=== PATIENT | female | born 1975 | race Caucasian/White ===

== ENCOUNTER → 2022-08-19 08:09 | Outpatient (CLI) | payer OTHER, SELFPAY ==
[2022-08-19 09:07] LABS: Basophils # 0.2 K/mm3 (0-0.2); Basophils % 1.1 % (0.1-2.0); Eosinophils % 0.3 % (0.1-12.0); Hematocrit 37.2 % (37.0-47.0); Hemoglobin 11.8 g/dL (12.2-16.2); Lymphocytes # 2.4 K/mm3 (0.7-4.5); Lymphocytes % 16.9 % (10-50); Mean Corpuscular HGB Conc 31.8 g/dL (31.8-35.4); Mean Corpuscular Hemoglobin 31.6 pg (27.0-31.2); Mean Corpuscular Volume 99.3 fl (81-99); Mean Platelet Volume 7.9 fl (7.4-10.4); Monocytes # 0.7 K/mm3 (0.1-1.0); Monocytes % 5.1 % (1.7-9.3); Neutrophils # 10.6 K/mm3 (1.8-7.8); Neutrophils % 76.5 % (37.0-80.0); Platelet Count 349 K/mm3 (142-424); Red Blood Count 3.74 M/mm3 (4.20-5.40); Red Cell Distribution Width 14.4 % (11.5-17.5); White Blood Count 13.9 K/mm3 (4.8-10.8)
[2022-08-19 09:59] LABS: Chloride 110 mmol/L (98-107); Potassium 3.5 mmoL/L (3.5-5.1); Sodium 141 mmol/L (136-145)
[2022-08-19 10:02] LABS: Alanine Aminotransferase 22 U/L (12-78); Albumin Level 4.1 g/dl (3.5-5.0); Albumin/Globulin Ratio 1.6 (1.1-1.8); Alkaline Phosphatase 59 U/L (38-126); Anion Gap 9.5 mEq/L (5-15); Aspartate Amino Transferase 26 U/L (14-36); Bilirubin,Total 0.2 mg/dl (0.2-1.3); Blood Urea Nitrogen 22 mg/dl (7-17); Calcium 8.8 mg/dl (8.4-10.2); Carbon Dioxide 25 mmol/L (22.0-30.0); Estimated Glomerular Filt Rate 77 ml/min (>60); GFR (African American) 93 ML/MIN (>60); Globulin 2.5 g/dL (1.3-3.2); Glucose 78 mg/dl (74-100); Total Protein,Serum 6.6 g/dl (6.3-8.2)
== END ==
PROVIDERS: Visit Provider Internal Medicine
DX: C50.811 Malignant neoplasm of overlapping sites of right female breast (principal); Z17.0 Estrogen receptor positive status [ER+]
CPT/HCPCS: 36415; 80053; 85025

== ENCOUNTER → 2022-09-02 07:43 | Outpatient (CLI) | payer OTHER, SELFPAY ==
[2022-09-02 07:58] LABS: Basophils # 0.2 K/mm3 (0-0.2); Basophils % 1.3 % (0.1-2.0); Eosinophils # 0.1 K/mm3 (0.0-0.4); Eosinophils % 0.4 % (0.1-12.0); Hematocrit 33.3 % (37.0-47.0); Lymphocytes # 2.3 K/mm3 (0.7-4.5); Mean Corpuscular HGB Conc 33.1 g/dL (31.8-35.4); Mean Corpuscular Hemoglobin 32.5 pg (27.0-31.2); Mean Platelet Volume 7.9 fl (7.4-10.4); Monocytes # 1.1 K/mm3 (0.1-1.0); Monocytes % 6.5 % (1.7-9.3); Neutrophils % 77.8 % (37.0-80.0); Platelet Count 338 K/mm3 (142-424); Red Cell Distribution Width 15.1 % (11.5-17.5); White Blood Count 16.7 K/mm3 (4.8-10.8)
[2022-09-02 08:11] LABS: MANUAL DIFFERENTIAL MANUAL DIFFERENTIAL (MANUAL DIFF)
[2022-09-02 08:27] LABS: Chloride 106 mmol/L (98-107); Potassium 3.8 mmoL/L (3.5-5.1); Sodium 139 mmol/L (136-145)
[2022-09-02 08:30] LABS: Alanine Aminotransferase 29 U/L (12-78); Albumin/Globulin Ratio 1.6 (1.1-1.8); Alkaline Phosphatase 62 U/L (38-126); Anion Gap 9.8 mEq/L (5-15); Aspartate Amino Transferase 31 U/L (14-36); Bilirubin,Total 0.2 mg/dl (0.2-1.3); Blood Urea Nitrogen 20 mg/dl (7-17); Carbon Dioxide 27 mmol/L (22.0-30.0); Estimated Glomerular Filt Rate 77 ml/min (>60); GFR (African American) 93 ML/MIN (>60); Globulin 2.5 g/dL (1.3-3.2); Total Protein,Serum 6.5 g/dl (6.3-8.2)
[2022-09-02 08:31] LABS: Calcium 8.8 mg/dl (8.4-10.2); Glucose 90 mg/dl (74-100)
[2022-09-02 09:42] LABS: Eosinophils % 2 % (0-3); Lymphocytes % 21 % (10-50); Monocytes % 7 % (2-9); Neutrophils % 70 % (42-76); Total Cells Counted 100
[2022-09-02 09:43] LABS: Platelet Estimate Normal; RBC Morphology Normal
== END ==
PROVIDERS: PCP Nurse Practitioner; Visit Provider Internal Medicine
DX: C50.811 Malignant neoplasm of overlapping sites of right female breast (principal); Z17.0 Estrogen receptor positive status [ER+]
CPT/HCPCS: 36415; 80053; 85007; 85025

== ENCOUNTER → 2022-10-14 13:52 | Outpatient (CLI) | payer OTHER, SELFPAY ==
[2022-10-14 14:19] LABS: Basophils % 0.4 % (0.1-2.0); Eosinophils # 0.2 K/mm3 (0.0-0.4); Eosinophils % 3.1 % (0.1-12.0); Hematocrit 33.5 % (37.0-47.0); Lymphocytes # 1.4 K/mm3 (0.7-4.5); Lymphocytes % 19.4 % (10-50); Mean Corpuscular HGB Conc 32.7 g/dL (31.8-35.4); Mean Corpuscular Hemoglobin 33.2 pg (27.0-31.2); Mean Corpuscular Volume 101.3 fl (81-99); Mean Platelet Volume 8.3 fl (7.4-10.4); Monocytes # 0.3 K/mm3 (0.1-1.0); Monocytes % 4.3 % (1.7-9.3); Neutrophils # 5.1 K/mm3 (1.8-7.8); Neutrophils % 72.8 % (37.0-80.0); Platelet Count 285 K/mm3 (142-424); Red Blood Count 3.31 M/mm3 (4.20-5.40); Red Cell Distribution Width 14.6 % (11.5-17.5); White Blood Count 7.1 K/mm3 (4.8-10.8)
[2022-10-14 14:53] LABS: Chloride 105 mmol/L (98-107); Sodium 140 mmol/L (136-145)
[2022-10-14 14:54] LABS: Potassium 3.8 mmoL/L (3.5-5.1)
[2022-10-14 14:56] LABS: Alanine Aminotransferase 52 U/L (12-78); Albumin Level 4.2 g/dl (3.5-5.0); Albumin/Globulin Ratio 1.9 (1.1-1.8); Alkaline Phosphatase 38 U/L (38-126); Anion Gap 12.8 mEq/L (5-15); Aspartate Amino Transferase 43 U/L (14-36); Bilirubin,Total 0.7 mg/dl (0.2-1.3); Blood Urea Nitrogen 19 mg/dl (7-17); Carbon Dioxide 26 mmol/L (22.0-30.0); Estimated Glomerular Filt Rate 67 ml/min (>60); GFR (African American) 81 ML/MIN (>60); Globulin 2.2 g/dL (1.3-3.2); Total Protein,Serum 6.4 g/dl (6.3-8.2)
[2022-10-14 14:57] LABS: Calcium 8.9 mg/dl (8.4-10.2); Glucose 94 mg/dl (74-100)
== END ==
PROVIDERS: PCP Nurse Practitioner; Visit Provider Internal Medicine
DX: C50.811 Malignant neoplasm of overlapping sites of right female breast (principal); Z17.0 Estrogen receptor positive status [ER+]
CPT/HCPCS: 36415; 80053; 85025

== ENCOUNTER → 2022-11-11 13:39 | Outpatient (CLI) | payer OTHER, SELFPAY ==
[2022-11-11 14:29] LABS: Basophils % 0.5 % (0.1-2.0); Eosinophils # 0.1 K/mm3 (0.0-0.4); Eosinophils % 1.1 % (0.1-12.0); Hematocrit 33.5 % (37.0-47.0); Hemoglobin 10.8 g/dL (12.2-16.2); Lymphocytes # 1.5 K/mm3 (0.7-4.5); Lymphocytes % 27.7 % (10-50); Mean Corpuscular HGB Conc 32.3 g/dL (31.8-35.4); Mean Corpuscular Volume 102.3 fl (81-99); Mean Platelet Volume 8.1 fl (7.4-10.4); Monocytes # 0.4 K/mm3 (0.1-1.0); Monocytes % 6.7 % (1.7-9.3); Neutrophils # 3.4 K/mm3 (1.8-7.8); Platelet Count 329 K/mm3 (142-424); Red Blood Count 3.27 M/mm3 (4.20-5.40); Red Cell Distribution Width 13.9 % (11.5-17.5); White Blood Count 5.3 K/mm3 (4.8-10.8)
[2022-11-11 15:08] LABS: Chloride 99 mmol/L (98-107); Sodium 138 mmol/L (136-145)
[2022-11-11 15:11] LABS: Alanine Aminotransferase 50 U/L (12-78); Albumin/Globulin Ratio 1.8 (1.1-1.8); Alkaline Phosphatase 41 U/L (38-126); Anion Gap 14.5 mEq/L (5-15); Aspartate Amino Transferase 35 U/L (14-36); Bilirubin,Total 0.5 mg/dl (0.2-1.3); Blood Urea Nitrogen 17 mg/dl (7-17); Carbon Dioxide 28 mmol/L (22.0-30.0); Estimated Glomerular Filt Rate 67 ml/min (>60); GFR (African American) 81 ML/MIN (>60); Globulin 2.2 g/dL (1.3-3.2); Glucose 90 mg/dl (74-100); Potassium 3.5 mmoL/L (3.5-5.1); Total Protein,Serum 6.2 g/dl (6.3-8.2)
== END ==
PROVIDERS: PCP Nurse Practitioner; Visit Provider Internal Medicine
DX: C50.811 Malignant neoplasm of overlapping sites of right female breast (principal); Z17.0 Estrogen receptor positive status [ER+]
CPT/HCPCS: 36415; 80053; 85025

== ENCOUNTER → 2023-02-26 12:52 | Outpatient (CLI) | payer OTHER, SELFPAY ==
--- NOTE | 2023-02-26 | CA_ITS ---
APPROVED REPORT EXAM: Comprehensive 2D, Doppler, and color-flow Echocardiogram Outpatient Therapist: Yudith Keenan, RCS, RVS Ht: 5 ft 6 in Wt: 185lbs BSA: 1.93 BP: 112/72 mmHg Indications: CHEMO EVALUATION, BREAST CANCER, 6 WEEKS POST-OP RECONSTRUCTION 2D Dimensions Aortic Root 3.03 cm F: 2.7 - 3.3 LA Volume 70.50 mL Left Atrium 2.94 cm F: 2.7 - 3.8 LA Volume Index 36.34 mL/m2 (M/F) 16-34 LVOT 1.95 cm (M/F) 1.5-2.5 M-Mode Dimensions RVDd 1.54 cm (0.9-2.6) LA Diam 3.31 cm (1.9-4.0) LVDd 5.15 cm (3.5-5.7) Ao Diam 3.35 cm (2.0-3.7) LVDs 3.61 cm (3.5-5.7) IVSd 0.93 cm (0.6-1.1) PWd 0.89 cm (0.6-1.1) EF (Teich) 56.70% EPSs 0.65 cm FS 29.90% EDV (Teich) 126.60 mL TAPSE 2.15 (<1.7) ESV (Teich) 54.80 mL LV Diastology E Decel Time 157.00 (160-240 msec) E/A Ratio 1.38 MED E' 6.80 (< 7 cm/sec) MED A' 7.00 cm/s E'/MED E' Ratio 10.12 (>14) LAT E' 6.80 (<10 cm/sec) LAT A' 9.10 cm/s E/LAT E' Ratio 10.12 (>14) Aortic Valve LVOT Max 64.00 (70-110 cm/s) LVOT VTI 11.78 cm AoV Peak Ludwig. 121.00 (50-130 cm/s) AO Peak GR. 5.90 mmHg AO Mean GR. 3.00 (<5 mmHg) AO VTI 22.14 (18-25 cm) DAVID (VTI) 1.59 (2.5-4.5 cm2) Mitral Valve MV A Velocity 50.00 (40-130 cm/s) E/A Ratio 1.38 MV Decel. Time 157.00 (160-240 ms) Pulmonary Valve PV Peak Velocity 75.00 (50-150 cm/s) Tricuspid Valve TR P. Velocity 221.00 cm/s RAP Estimate 10.00 mmHg RVSP 29.60 mmHg Left Ventricle The left ventricle is normal size. The left ventricular systolic function is normal. The left ventricular ejection fraction is within the normal range. There is normal left ventricular wall thickness. There is normal LV segmental wall motion. The left ventricular diastolic function is normal. LVEF is 55-60%. Right Ventricle Right ventricle is mildly dilated. The right ventricular systolic function is normal. Atria The left atrium size is normal. The right atrium size is normal. There is no Doppler evidence of interatrial shunt. Aortic Valve The aortic valve opens well. There is no aortic valvular stenosis. Trace aortic regurgitation. Mitral Valve The mitral valve is normal in structure. No evidence of mitral valve stenosis. Trace mitral regurgitation. Tricuspid Valve The tricuspid valve leaflets are thin and pliable. Trace tricuspid regurgitation. RVSP is normal. Pulmonic Valve The pulmonary valve is normal in structure. Trace pulmonic regurgitation. Great Vessels The aortic root is normal in size. The ascending aorta is normal in size. IVC is normal in size and collapses >50% with inspiration. Pericardium There is no pericardial effusion. An epicardial fat pad is noted. Other Information Study Quality: Adequate Conclusion Normal biventricular systolic function (LVEF 55-60%) Mildly dilated RV. No significant valvular disease. Electronically signed by : Jodi Leon, 02/27/2023 15:46:40
== END ==
PROVIDERS: PCP Nurse Practitioner; Visit Provider Internal Medicine Medical Oncology
DX: C50.911 Malignant neoplasm of unspecified site of right female breast; Z17.0 Estrogen receptor positive status [ER+]; Z01.810 Encounter for preprocedural cardiovascular examination
CPT/HCPCS: 93306

== ENCOUNTER 2023-03-06 08:14 | Outpatient (CLI) | payer OTHER, SELFPAY ==
[2023-03-06 08:17] VITALS: BMI 29.5
--- NOTE | 2023-03-06 08:18 | PC.NURSE ---
0818-collected labs via venipuncture stick in left ac;pt will wait for labs for treatment.
[2023-03-06 08:28] LABS: Basophils % 0.4 % (0.1-2.0); Eosinophils # 0.2 K/mm3 (0.0-0.4); Eosinophils % 2.5 % (0.1-12.0); Hematocrit 32.1 % (37.0-47.0); Hemoglobin 9.8 g/dL (12.2-16.2); Lymphocytes # 1.5 K/mm3 (0.7-4.5); Lymphocytes % 21.3 % (10-50); Mean Corpuscular HGB Conc 30.6 g/dL (31.8-35.4); Mean Corpuscular Volume 78.7 fl (81-99); Mean Platelet Volume 7.9 fl (7.4-10.4); Monocytes # 0.3 K/mm3 (0.1-1.0); Monocytes % 4.5 % (1.7-9.3); Neutrophils # 5.1 K/mm3 (1.8-7.8); Neutrophils % 71.2 % (37.0-80.0); Platelet Count 374 K/mm3 (142-424); Red Blood Count 4.08 M/mm3 (4.20-5.40); Red Cell Distribution Width 16.7 % (11.5-17.5); White Blood Count 7.2 K/mm3 (4.8-10.8)
[2023-03-06 09:00] VITALS: BP 113/71; PULSE 91; RESP 18; TEMP 36.3; O2SAT 100
[2023-03-06 09:08] VITALS: BP 100/67; PULSE 88; RESP 18; O2SAT 98
[2023-03-06 09:13] VITALS: BP 100/68; PULSE 93; RESP 18; O2SAT 99
[2023-03-06 09:18] VITALS: BP 110/69; PULSE 87; RESP 18; O2SAT 100
[2023-03-06 09:23] VITALS: BP 109/71; PULSE 88; RESP 18; O2SAT 99
[2023-03-06 09:40] VITALS: BP 108/71; PULSE 93; RESP 18; O2SAT 100
--- NOTE | 2023-03-06 09:40 | PC.NURSE ---
0940-pt d/c home without s/s of reaction;injection site no only pink. pt instructed to continue to monitor for any s/s of reactions or side effects.
== END 2023-03-06 09:40 | disposition home or self-care (01) ==
LOC: INF 08:14
PROVIDERS: PCP Nurse Practitioner; Visit Provider Internal Medicine Medical Oncology
DX: Z51.11 Encounter for antineoplastic chemotherapy (principal); C50.811 Malignant neoplasm of overlapping sites of right female breast; Z17.0 Estrogen receptor positive status [ER+]
CPT/HCPCS: 36415; 85025; 96401; J9316

== ENCOUNTER 2023-03-26 08:34 | Outpatient (CLI) | payer OTHER, SELFPAY ==
[2023-03-26 08:37] VITALS: BMI 29.5
[2023-03-26 08:45] LABS: Basophils % 0.4 % (0.1-2.0); Eosinophils # 0.1 K/mm3 (0.0-0.4); Eosinophils % 1.7 % (0.1-12.0); Hematocrit 33.7 % (37.0-47.0); Hemoglobin 9.9 g/dL (12.2-16.2); Lymphocytes % 18.5 % (10-50); Mean Corpuscular HGB Conc 29.4 g/dL (31.8-35.4); Mean Corpuscular Hemoglobin 22.1 pg (27.0-31.2); Mean Corpuscular Volume 75.1 fl (81-99); Monocytes # 0.3 K/mm3 (0.1-1.0); Monocytes % 5.7 % (1.7-9.3); Neutrophils % 73.6 % (37.0-80.0); Platelet Count 374 K/mm3 (142-424); Red Blood Count 4.49 M/mm3 (4.20-5.40); Red Cell Distribution Width 16.9 % (11.5-17.5); White Blood Count 5.4 K/mm3 (4.8-10.8)
[2023-03-26 08:51] LABS: Chloride 104 mmol/L (98-107); Potassium 4.1 mmoL/L (3.5-5.1); Sodium 141 mmol/L (136-145)
[2023-03-26 08:53] LABS: Alanine Aminotransferase 27 U/L (12-78); Aspartate Amino Transferase 31 U/L (14-36); Blood Urea Nitrogen 18 mg/dl (7-17); Creatinine Clearance Estimated 100 mL/min (50-200); Estimated Glomerular Filt Rate 67 ml/min (>60); GFR (African American) 81 ML/MIN (>60)
[2023-03-26 08:54] LABS: Albumin Level 4.2 g/dl (3.5-5.0); Albumin/Globulin Ratio 1.4 (1.1-1.8); Alkaline Phosphatase 61 U/L (38-126); Anion Gap 12.1 mEq/L (5-15); Bilirubin,Total 0.5 mg/dl (0.2-1.3); Calcium 9.6 mg/dl (8.4-10.2); Carbon Dioxide 29 mmol/L (22.0-30.0); Globulin 2.9 g/dL (1.3-3.2); Glucose 100 mg/dl (74-100); Total Protein,Serum 7.1 g/dl (6.3-8.2)
[2023-03-26 10:00] VITALS: BP 118/67; PULSE 87; RESP 18; TEMP 36.9; O2SAT 99
[2023-03-26 10:03] VITALS: BP 112/73; PULSE 84
[2023-03-26 10:05] VITALS: BP 112/74; PULSE 87
[2023-03-26 10:13] LABS: Iron 25 ug/dL (37-170)
[2023-03-26 10:20] VITALS: BP 120/74; PULSE 82; RESP 18; O2SAT 99
[2023-03-26 10:22] LABS: Total Iron Binding Capacity 476 ug/dL (265-497)
[2023-03-26 10:50] LABS: Ferritin 6.25 ng/ml (6.24-137)
== END 2023-03-26 10:25 | disposition home or self-care (01) ==
LOC: INF 08:34
PROVIDERS: PCP Nurse Practitioner; Visit Provider Internal Medicine Medical Oncology
DX: C50.911 Malignant neoplasm of unspecified site of right female breast (principal); Z17.0 Estrogen receptor positive status [ER+]; D50.8 Other iron deficiency anemias; R53.83 Other fatigue
CPT/HCPCS: 80053; 82728; 83540; 83550; 85025; 96402; J9316

== ENCOUNTER 2023-04-08 11:11 | Outpatient (CLI) | payer OTHER, SELFPAY ==
[2023-04-08 11:45] VITALS: BP 112/68; PULSE 84; RESP 18; O2SAT 99
== END 2023-04-08 12:30 | disposition home or self-care (01) ==
LOC: INF 11:11
PROVIDERS: PCP Nurse Practitioner; Visit Provider Internal Medicine Medical Oncology
DX: C50.919 Malignant neoplasm of unspecified site of unspecified female breast (principal); D50.9 Iron deficiency anemia, unspecified
CPT/HCPCS: 96365; J1756

== ENCOUNTER 2023-04-14 10:37 | Outpatient (CLI) | payer OTHER, SELFPAY ==
[2023-04-14 11:00] VITALS: BP 117/77; PULSE 84; RESP 18; O2SAT 99
[2023-04-14 11:30] VITALS: BP 108/71; PULSE 76; RESP 18; O2SAT 99
== END 2023-04-14 11:45 | disposition home or self-care (01) ==
LOC: INF 10:37
PROVIDERS: PCP Nurse Practitioner; Visit Provider Internal Medicine Medical Oncology
DX: C50.911 Malignant neoplasm of unspecified site of right female breast (principal); Z17.0 Estrogen receptor positive status [ER+]; D50.8 Other iron deficiency anemias
CPT/HCPCS: 96365; J1756

== ENCOUNTER 2023-04-16 08:29 | Outpatient (CLI) | payer OTHER, SELFPAY ==
[2023-04-16 08:33] VITALS: BMI 29.0
--- NOTE | 2023-04-16 08:40 | PC.NURSE ---
Pt presents today for blood to be drawn prior to oncology md appt. Venipuncture performed per Patricia Ruth RN to pt's lt ac x 1 stick using a butterfly needle, blood obtained for labs and specimen sent to lab for analysis. Once needle was withdrawn, site secured with 2x2 gauze and coban. Pt able to ambulate self to clinic and will return post appt for chemo injection.
[2023-04-16 08:50] LABS: Basophils % 0.3 % (0.1-2.0); Eosinophils # 0.1 K/mm3 (0.0-0.4); Eosinophils % 1.7 % (0.1-12.0); Hemoglobin 11.4 g/dL (12.2-16.2); Lymphocytes # 0.5 K/mm3 (0.7-4.5); Lymphocytes % 8.9 % (10-50); Mean Corpuscular HGB Conc 32.4 g/dL (31.8-35.4); Mean Corpuscular Hemoglobin 24.6 pg (27.0-31.2); Mean Corpuscular Volume 75.7 fl (81-99); Mean Platelet Volume 8.2 fl (7.4-10.4); Monocytes # 0.4 K/mm3 (0.1-1.0); Neutrophils # 4.9 K/mm3 (1.8-7.8); Neutrophils % 82.1 % (37.0-80.0); Platelet Count 249 K/mm3 (142-424); Red Blood Count 4.63 M/mm3 (4.20-5.40); Red Cell Distribution Width 21.6 % (11.5-17.5)
[2023-04-16 08:59] LABS: Alanine Aminotransferase 49 U/L (12-78); Albumin Level 4.7 g/dl (3.5-5.0); Albumin/Globulin Ratio 1.5 (1.1-1.8); Alkaline Phosphatase 59 U/L (38-126); Anion Gap 13.7 mEq/L (5-15); Aspartate Amino Transferase 67 U/L (14-36); Bilirubin,Total 0.9 mg/dl (0.2-1.3); Blood Urea Nitrogen 19 mg/dl (7-17); Carbon Dioxide 28 mmol/L (22.0-30.0); Chloride 101 mmol/L (98-107); Creatinine Clearance Estimated 99 mL/min (50-200); Estimated Glomerular Filt Rate 67 ml/min (>60); GFR (African American) 81 ML/MIN (>60); Globulin 3.2 g/dL (1.3-3.2); Glucose 102 mg/dl (74-100); Potassium 3.7 mmoL/L (3.5-5.1); Sodium 139 mmol/L (136-145); Total Protein,Serum 7.9 g/dl (6.3-8.2)
[2023-04-16 09:28] VITALS: BP 108/64; PULSE 78; RESP 18; TEMP 36.7; O2SAT 99
== END 2023-04-16 09:40 | disposition home or self-care (01) ==
LOC: INF 08:30
PROVIDERS: PCP Nurse Practitioner; Visit Provider Internal Medicine Medical Oncology
DX: C50.911 Malignant neoplasm of unspecified site of right female breast (principal); Z17.0 Estrogen receptor positive status [ER+]
CPT/HCPCS: 36415; 80053; 85025; 96401; J9316

== ENCOUNTER 2023-04-21 10:30 | Outpatient (CLI) | payer OTHER, SELFPAY ==
[2023-04-21 10:55] VITALS: BP 123/87; PULSE 75; RESP 18; O2SAT 100
[2023-04-21 11:28] VITALS: BP 122/81; PULSE 74; RESP 18; O2SAT 100
== END 2023-04-21 11:35 | disposition home or self-care (01) ==
LOC: INF 10:31
PROVIDERS: PCP Nurse Practitioner; Visit Provider Internal Medicine Medical Oncology
DX: C50.911 Malignant neoplasm of unspecified site of right female breast (principal); Z17.0 Estrogen receptor positive status [ER+]; D50.9 Iron deficiency anemia, unspecified
CPT/HCPCS: 96365; J1756

== ENCOUNTER 2023-04-28 08:36 | Outpatient (CLI) | payer OTHER, SELFPAY ==
[2023-04-28 08:56] VITALS: BP 105/75; PULSE 92; RESP 18; O2SAT 99
[2023-04-28 09:30] VITALS: BP 121/71; PULSE 89; RESP 18; O2SAT 99
== END 2023-04-28 09:44 | disposition home or self-care (01) ==
LOC: INF 08:36
PROVIDERS: PCP Nurse Practitioner; Visit Provider Internal Medicine Medical Oncology
DX: C50.811 Malignant neoplasm of overlapping sites of right female breast (principal); Z17.0 Estrogen receptor positive status [ER+]; D50.9 Iron deficiency anemia, unspecified
CPT/HCPCS: 96365; J1756

== ENCOUNTER 2023-05-05 08:44 | Outpatient (CLI) | payer OTHER, SELFPAY ==
[2023-05-05 09:05] VITALS: BP 112/75; PULSE 72; RESP 18; TEMP 36.3; O2SAT 100
[2023-05-05 09:53] VITALS: BP 116/79; PULSE 74; RESP 18; O2SAT 99
== END 2023-05-05 09:54 | disposition home or self-care (01) ==
LOC: INF 08:45
PROVIDERS: PCP Nurse Practitioner; Visit Provider Internal Medicine Medical Oncology
DX: C50.811 Malignant neoplasm of overlapping sites of right female breast (principal); Z17.0 Estrogen receptor positive status [ER+]; D50.9 Iron deficiency anemia, unspecified
CPT/HCPCS: 96365; J1756

== ENCOUNTER 2023-05-06 09:38 | Outpatient (CLI) | payer OTHER, SELFPAY ==
[2023-05-06 09:41] VITALS: BMI 29.7
[2023-05-06 09:56] LABS: Basophils % 0.5 % (0.1-2.0); Eosinophils # 0.1 K/mm3 (0.0-0.4); Eosinophils % 1.7 % (0.1-12.0); Hematocrit 36.9 % (37.0-47.0); Hemoglobin 12.1 g/dL (12.2-16.2); Lymphocytes # 0.7 K/mm3 (0.7-4.5); Lymphocytes % 12.6 % (10-50); Mean Corpuscular HGB Conc 32.7 g/dL (31.8-35.4); Mean Corpuscular Hemoglobin 26.4 pg (27.0-31.2); Mean Corpuscular Volume 80.6 fl (81-99); Monocytes # 0.3 K/mm3 (0.1-1.0); Monocytes % 6.4 % (1.7-9.3); Neutrophils # 4.1 K/mm3 (1.8-7.8); Neutrophils % 78.7 % (37.0-80.0); Platelet Count 200 K/mm3 (142-424); Red Blood Count 4.58 M/mm3 (4.20-5.40); White Blood Count 5.1 K/mm3 (4.8-10.8)
[2023-05-06 10:08] LABS: Alanine Aminotransferase 46 U/L (12-78); Albumin Level 4.6 g/dl (3.5-5.0); Albumin/Globulin Ratio 1.7 (1.1-1.8); Alkaline Phosphatase 55 U/L (38-126); Anion Gap 11.6 mEq/L (5-15); Aspartate Amino Transferase 49 U/L (14-36); Bilirubin,Total 0.5 mg/dl (0.2-1.3); Blood Urea Nitrogen 17 mg/dl (7-17); Calcium 9.7 mg/dl (8.4-10.2); Carbon Dioxide 31 mmol/L (22.0-30.0); Chloride 100 mmol/L (98-107); Creatinine Clearance Estimated 101 mL/min (50-200); Estimated Glomerular Filt Rate 67 ml/min (>60); GFR (African American) 81 ML/MIN (>60); Globulin 2.7 g/dL (1.3-3.2); Glucose 97 mg/dl (74-100); Potassium 3.6 mmoL/L (3.5-5.1); Sodium 139 mmol/L (136-145); Total Protein,Serum 7.3 g/dl (6.3-8.2)
[2023-05-06 10:17] LABS: Red Cell Distribution Width 26.1 % (11.5-17.5)
--- NOTE | 2023-05-06 10:28 | PC.NURSE ---
05/06/23 0946-pt presents today prior to md appt with oncologist to have blood drawn for labs. Venipuncture performed by Li Mancilla RN using butterfly needle to pt's lt ac x 1 stick. Site secured with 2x2 gauze and coban once needle was withdrawn. Pt ambulated self to Specialty clinic to see .
[2023-05-06 11:40] VITALS: BP 122/71; PULSE 74; RESP 18; TEMP 36.8; O2SAT 100
[2023-05-06 11:55] VITALS: BP 118/68; PULSE 69; O2SAT 100
== END 2023-05-06 11:55 | disposition home or self-care (01) ==
LOC: INF 09:39
PROVIDERS: PCP Nurse Practitioner; Visit Provider Internal Medicine Medical Oncology
DX: Z51.11 Encounter for antineoplastic chemotherapy (principal); C50.411 Malignant neoplasm of upper-outer quadrant of right female breast; Z17.0 Estrogen receptor positive status [ER+]; Z79.899 Other long term (current) drug therapy
CPT/HCPCS: 36415; 80053; 85025; 96402; J9316

== ENCOUNTER 2023-05-11 09:00 | Outpatient (RCR) | payer OTHER, SELFPAY ==
--- NOTE | 2023-04-16 13:56 | [facility]H.PTOPWND ---
Rehab Outpt Wound Evaluation Rehab OP Wound Evaluation Start: 04/16/23 08:05 Freq: Status: Active Protocol: Document 04/16/23 13:39 PHOFANNY (Rec: 04/16/23 13:56 PHORSUSAN [id number]) E-signed By Chele Hung, PT Subjective/History History History This is the initial PT eval for Darline Farnsworth, 47 yowf who presents with UE discomfort and swelling due to breast cancer (T3N0M0, ER/OR+, HER2+) She was diagnosed ~ 1 yr ago and underwent B mastectomy ~ 7 mos ago with sentinel lymph node biopsy performed and 1 lymph node removed. She has underwent chemo and is currently undergoing XRT. She reports minimal edema in the UEs this date, but some discomfort with certain movements. She has PMH of WAG[place]. Subjective Subjective Pt currently has no c/o pain, at worst pain is 3/10. No sensations of numbness or tingling in B UE. No palpable edema in B UE this date. R axilla with increased ridging and mild palpable fibrotic edema. New diagnosis of cancer in past 12 Yes months? Lymphedema Eval Classification of Lymphedema Secondary Lymphedema Yes: Breast cancer Stemmer's sign Stemmer's Sign no Stage of Lymphedema Lymphedema stages Stage 0 (subjective c/o heaviness and aching) Skin Changes Other Changes Yes Pain Scale Pain Scale (0-10) 3 Radiation Therapy Has received radiation therapy yes Chemo Therapy Has received chemo therapy yes Affected Extremities Areas Affected by Lymphedema/Edema Right Upper Extremity,Left Upper Extremity,Right Breast, Left Breast,Right Axilla,Left Axilla Manual Lymphatic Drainage Treatment Area MLD Treatment Area Right Upper Extremity,Left Upper Extremity,Right Breast, Left Breast,Right Axilla,Left Axilla Wound Problems/Impairments Impairments Problems/Impairmments Impaired Range of Motion, Impaired Strength,Impaired Endurance,Impaired Lifting, Impaired Dressing,Impaired Household Care,Impaired Recreational Activities, Lymphedema Present,Subjective C/O Pain,Impaired Self Care/ Self Management Prognosis Rehab Potential Good Clinical Impression Consistent with Diagnosis Yes Short Term Goals Number of Weeks 2 Decrease Lymphedema Yes: No fibrotic edema Decrease Subjective C/O Pain Yes: 2/10 at worst Patient to Understand Lymphedema Yes Treatment and Exercises Decrease Girth Measurments by (cm) Yes: B UE by 5 cm total ea Care Home Goals Number of Weeks 4 Improve Ability For Household Care Yes Decrease Edema Yes: No palpable edema Decrease Subjective C/O Pain Yes: 0/10 at worst Patient to be Ind w/ Advanced HEP Yes Patient to be Ind w/ Donning/Hull Yes Compression Garments Patient to Adhere Lymphedema Precautions Yes Decrease Girth Measurments by (cm) Yes: B UE total by 10 cm ea Outpatient Therapy Plan of Care Treatment Plan May Include Therapeutic Exercise Including Home Yes Exercise Program Manual Therapy Techniques Yes Neuromuscular Re-education Yes Therapeutic Activities to Return to Yes Previous Functional/Work Level ADL/Self Care Education Yes Orthotics/Bracing/Splinting Yes Manual Lymphatic Drainage Yes Eval/Re-Eval Yes Frequency Times per week 1-2 Duration Number of Weeks 4 Addendums This patient is a candidate for social No or vocational rehab? Patient/Guardian verbally acknowledges Yes understanding of treatment program and consents to further treatment? Patient/Guardian verbally acknowledges Yes understanding of diagnosis, prognosis and goals for treatment? Eval Complexity PT Charges 01720 - High Complexity PHYSICIAN CERTIFICATION: I certify the specified therapy services for Darline Farnsworth are required, authorized, and reviewed every 30 days.
== END 2023-05-11 10:20 | disposition home or self-care (01) ==
LOC: PT 09:00
PROVIDERS: Visit Provider Internal Medicine Medical Oncology
DX: I89.0 Lymphedema, not elsewhere classified (principal); C50.811 Malignant neoplasm of overlapping sites of right female breast; Z17.0 Estrogen receptor positive status [ER+]
CPT/HCPCS: 97140; 97163; 97760

== ENCOUNTER → 2023-05-15 11:05 | Outpatient (CLI) | payer OTHER, SELFPAY ==
--- NOTE | 2023-05-15 | CA_ITS ---
APPROVED REPORT EXAM: Limited 2D, Doppler, and color-flow Echocardiogram Hand Plug Shaper: Yadira Porter, RT(R) Ht: 5 ft 6 in Wt: 184lbs BSA: 1.93 BP: 119/82 mmHg Indications: EF for chemo use, breast cancer, bilateral mastectomies with bilateral breast reconstsruction, pt gets echo every 3 months during chemo to assess EF. 2D Dimensions LVEF (Visual) 55.00 % LVEF (Burk's) 35.80 % F: 54 - 74 LV Volume 85.00 mL F: 46 - 106 LV Volume Index 44.04 mL/m2 F: 29 - 61 M-Mode Dimensions RVDd 2.43 cm (0.9-2.6) LVDd 4.83 cm (3.5-5.7) LVDs 3.65 cm (3.5-5.7) IVSd 0.75 cm (0.6-1.1) PWd 0.57 cm (0.6-1.1) FS 24.40% EDV (Teich) 109.10 mL ESV (Teich) 56.30 mL LV Diastology E/A Ratio 1.29 Mitral Valve MV A Velocity 57.00 (40-130 cm/s) Tricuspid Valve RVSP 29.90 mmHg Other Information Study Quality: Fair Conclusion This is a limited TTE to evaluate for LVEF. Limited windows were obtained. The left ventricle appears normal in size and systolic function. No regional wall motion abnormalities are noted. LVEF is calculated at 55%. Mild TR is present. Compared to prior study from 02/26/2023, there is no significant change in the LVEF. Electronically signed by : Jodi Leon MD 05/15/2023 20:49:59
== END ==
PROVIDERS: PCP Nurse Practitioner; Visit Provider Internal Medicine Medical Oncology
DX: C50.811 Malignant neoplasm of overlapping sites of right female breast (principal); Z17.0 Estrogen receptor positive status [ER+]
CPT/HCPCS: 93308

== ENCOUNTER 2023-05-27 09:24 | Outpatient (CLI) | payer OTHER, SELFPAY ==
[2023-05-27 09:27] VITALS: BMI 29.7
--- NOTE | 2023-05-27 09:37 | PC.NURSE ---
0930- cbc and cmp drawn per MD Pawan order. pt to oncology appt at this time and will return for Phesgo injection.
[2023-05-27 09:47] LABS: Alanine Aminotransferase 57 U/L (12-78); Albumin Level 4.6 g/dl (3.5-5.0); Albumin/Globulin Ratio 1.5 (1.1-1.8); Alkaline Phosphatase 96 U/L (38-126); Anion Gap 11.5 mEq/L (5-15); Aspartate Amino Transferase 58 U/L (14-36); Blood Urea Nitrogen 17 mg/dl (7-17); Calcium 9.5 mg/dl (8.4-10.2); Carbon Dioxide 27 mmol/L (22.0-30.0); Chloride 101 mmol/L (98-107); Creatinine Clearance Estimated 91 mL/min (50-200); Estimated Glomerular Filt Rate 59 ml/min (>60); GFR (African American) 72 ML/MIN (>60); Glucose 87 mg/dl (74-100); Potassium 3.5 mmoL/L (3.5-5.1); Sodium 136 mmol/L (136-145); Total Protein,Serum 7.6 g/dl (6.3-8.2)
[2023-05-27 09:51] LABS: Basophils % 0.5 % (0.1-2.0); Eosinophils # 0.1 K/mm3 (0.0-0.4); Eosinophils % 1.8 % (0.1-12.0); Hematocrit 41.8 % (37.0-47.0); Hemoglobin 13.3 g/dL (12.2-16.2); Lymphocytes # 0.7 K/mm3 (0.7-4.5); Mean Corpuscular HGB Conc 31.8 g/dL (31.8-35.4); Mean Corpuscular Hemoglobin 27.1 pg (27.0-31.2); Mean Corpuscular Volume 85.2 fl (81-99); Mean Platelet Volume 7.7 fl (7.4-10.4); Monocytes # 0.4 K/mm3 (0.1-1.0); Monocytes % 6.6 % (1.7-9.3); Neutrophils # 4.3 K/mm3 (1.8-7.8); Platelet Count 235 K/mm3 (142-424); White Blood Count 5.5 K/mm3 (4.8-10.8)
[2023-05-27 09:54] LABS: Red Cell Distribution Width 25.8 % (11.5-17.5)
[2023-05-27 11:10] VITALS: BP 108/72; PULSE 76; RESP 18; TEMP 36.7; O2SAT 99
[2023-05-27 11:15] VITALS: BP 110/67; PULSE 74
== END 2023-05-27 11:25 | disposition home or self-care (01) ==
LOC: INF 09:24
PROVIDERS: PCP Nurse Practitioner; Visit Provider Internal Medicine Medical Oncology
DX: C50.911 Malignant neoplasm of unspecified site of right female breast (principal)
CPT/HCPCS: 80053; 85025; 96402; J9316

== ENCOUNTER 2023-06-17 09:16 | Outpatient (CLI) | payer OTHER, SELFPAY ==
[2023-06-17 09:20] VITALS: BMI 29.2
--- NOTE | 2023-06-17 09:30 | PC.NURSE ---
0925 - BLOOD DRAWN FROM LEFT AC USING BUTTERFLY NEEDLE TO CHECK LABS PRIOR TO DR ILEANA FREGOSO
[2023-06-17 09:33] LABS: Basophils % 0.7 % (0.1-2.0); Eosinophils # 0.1 K/mm3 (0.0-0.4); Eosinophils % 1.7 % (0.1-12.0); Hematocrit 40.4 % (37.0-47.0); Lymphocytes # 0.6 K/mm3 (0.7-4.5); Lymphocytes % 10.8 % (10-50); Mean Corpuscular HGB Conc 32.3 g/dL (31.8-35.4); Mean Corpuscular Volume 89.7 fl (81-99); Mean Platelet Volume 7.5 fl (7.4-10.4); Monocytes # 0.3 K/mm3 (0.1-1.0); Monocytes % 5.2 % (1.7-9.3); Neutrophils # 4.4 K/mm3 (1.8-7.8); Neutrophils % 81.7 % (37.0-80.0); Platelet Count 238 K/mm3 (142-424); Red Cell Distribution Width 22.4 % (11.5-17.5); White Blood Count 5.4 K/mm3 (4.8-10.8)
[2023-06-17 09:41] LABS: Chloride 103 mmol/L (98-107); Potassium 3.5 mmoL/L (3.5-5.1); Sodium 139 mmol/L (136-145)
[2023-06-17 09:43] LABS: Blood Urea Nitrogen 22 mg/dl (7-17); Creatinine Clearance Estimated 89 mL/min (50-200); Estimated Glomerular Filt Rate 59 ml/min (>60); GFR (African American) 72 ML/MIN (>60)
[2023-06-17 09:44] LABS: Alanine Aminotransferase 35 U/L (12-78); Albumin Level 4.6 g/dl (3.5-5.0); Albumin/Globulin Ratio 1.7 (1.1-1.8); Alkaline Phosphatase 68 U/L (38-126); Anion Gap 7.5 mEq/L (5-15); Aspartate Amino Transferase 40 U/L (14-36); Bilirubin,Total 0.8 mg/dl (0.2-1.3); Calcium 9.5 mg/dl (8.4-10.2); Carbon Dioxide 32 mmol/L (22.0-30.0); Globulin 2.7 g/dL (1.3-3.2); Glucose 78 mg/dl (74-100); Total Protein,Serum 7.3 g/dl (6.3-8.2)
[2023-06-17 10:20] VITALS: BP 110/76; PULSE 96; RESP 16; TEMP 36.5; O2SAT 100
== END 2023-06-17 10:40 | disposition home or self-care (01) ==
LOC: INF 09:16
PROVIDERS: PCP Nurse Practitioner; Visit Provider Internal Medicine Medical Oncology
DX: C50.411 Malignant neoplasm of upper-outer quadrant of right female breast (principal)
CPT/HCPCS: 80053; 85025; 96402; J9316

== ENCOUNTER 2023-07-08 08:37 | Outpatient (CLI) | payer OTHER, SELFPAY ==
--- NOTE | 2023-07-08 08:47 | PC.NURSE ---
0847-collected labs via venipuncture stick with butterfly needle in left ac;pt to get treatment.
[2023-07-08 09:05] VITALS: BMI 21.4
[2023-07-08 09:16] LABS: Alanine Aminotransferase 27 U/L (12-78); Albumin Level 4.4 g/dl (3.5-5.0); Albumin/Globulin Ratio 1.7 (1.1-1.8); Alkaline Phosphatase 76 U/L (38-126); Anion Gap 10.4 mEq/L (5-15); Aspartate Amino Transferase 35 U/L (14-36); Bilirubin,Total 0.6 mg/dl (0.2-1.3); Blood Urea Nitrogen 24 mg/dl (7-17); Calcium 9.3 mg/dl (8.4-10.2); Carbon Dioxide 25 mmol/L (22.0-30.0); Chloride 104 mmol/L (98-107); Creatinine Clearance Estimated 68 mL/min (50-200); Estimated Glomerular Filt Rate 67 ml/min (>60); GFR (African American) 81 ML/MIN (>60); Globulin 2.6 g/dL (1.3-3.2); Glucose 104 mg/dl (74-100); Potassium 3.4 mmoL/L (3.5-5.1); Sodium 136 mmol/L (136-145)
[2023-07-08 09:18] LABS: Basophils % 0.3 % (0.1-2.0); Eosinophils # 0.1 K/mm3 (0.0-0.4); Eosinophils % 1.4 % (0.1-12.0); Hematocrit 40.3 % (37.0-47.0); Hemoglobin 13.6 g/dL (12.2-16.2); Lymphocytes # 0.7 K/mm3 (0.7-4.5); Lymphocytes % 8.5 % (10-50); Mean Corpuscular HGB Conc 33.7 g/dL (31.8-35.4); Mean Corpuscular Hemoglobin 31.4 pg (27.0-31.2); Mean Corpuscular Volume 93.1 fl (81-99); Mean Platelet Volume 7.9 fl (7.4-10.4); Monocytes # 0.4 K/mm3 (0.1-1.0); Monocytes % 5.3 % (1.7-9.3); Neutrophils # 6.9 K/mm3 (1.8-7.8); Neutrophils % 84.6 % (37.0-80.0); Platelet Count 267 K/mm3 (142-424); Red Blood Count 4.33 M/mm3 (4.20-5.40); Red Cell Distribution Width 18.6 % (11.5-17.5); White Blood Count 8.1 K/mm3 (4.8-10.8)
[2023-07-08] MEDS: HYALURONIDASE SQ (09:50)
[2023-07-08] MEDS: TRASTUZUMAB SQ (09:50)
[2023-07-08] MEDS: PERTUZUMAB SQ (09:50)
[2023-07-08 09:59] VITALS: BP 108/70; PULSE 96; RESP 18; TEMP 36.6; O2SAT 100
== END 2023-07-08 09:59 | disposition home or self-care (01) ==
LOC: INF 08:39
PROVIDERS: PCP Nurse Practitioner; Visit Provider Internal Medicine Medical Oncology
DX: C50.411 Malignant neoplasm of upper-outer quadrant of right female breast (principal); Z17.0 Estrogen receptor positive status [ER+]
CPT/HCPCS: 36415; 80053; 85025; 96401; 96402; J9316

== ENCOUNTER 2023-07-31 08:35 | Outpatient (CLI) | payer OTHER, SELFPAY ==
[2023-07-31 08:45] VITALS: BMI 29.3
[2023-07-31 08:54] LABS: Basophils % 0.4 % (0.1-2.0); Eosinophils # 0.2 K/mm3 (0.0-0.4); Hematocrit 32.5 % (37.0-47.0); Hemoglobin 12.3 g/dL (12.2-16.2); Lymphocytes # 0.8 K/mm3 (0.7-4.5); Lymphocytes % 13.1 % (10-50); Mean Corpuscular HGB Conc 37.8 g/dL (31.8-35.4); Mean Corpuscular Hemoglobin 35.9 pg (27.0-31.2); Mean Corpuscular Volume 95.1 fl (81-99); Monocytes # 0.4 K/mm3 (0.1-1.0); Neutrophils # 4.8 K/mm3 (1.8-7.8); Neutrophils % 77.4 % (37.0-80.0); Platelet Count 239 K/mm3 (142-424); Red Blood Count 3.42 M/mm3 (4.20-5.40); Red Cell Distribution Width 14.9 % (11.5-17.5); White Blood Count 6.2 K/mm3 (4.8-10.8)
--- NOTE | 2023-07-31 09:01 | PC.NURSE ---
0844- cbc and cmp drawn per MD order via butterfly needle in left ac. pt tolerated well and will return after oncologt appt for phesgo injection.
[2023-07-31 09:17] LABS: Alanine Aminotransferase 32 U/L (12-78); Albumin Level 3.8 g/dl (3.5-5.0); Albumin/Globulin Ratio 1.5 (1.1-1.8); Alkaline Phosphatase 73 U/L (38-126); Anion Gap 9.6 mEq/L (5-15); Aspartate Amino Transferase 40 U/L (14-36); Bilirubin,Total 0.9 mg/dl (0.2-1.3); Blood Urea Nitrogen 13 mg/dl (7-17); Calcium 9.3 mg/dl (8.4-10.2); Carbon Dioxide 30 mmol/L (22.0-30.0); Chloride 104 mmol/L (98-107); Creatinine Clearance Estimated 128 mL/min (50-200); Estimated Glomerular Filt Rate 89 ml/min (>60); GFR (African American) 108 ML/MIN (>60); Globulin 2.5 g/dL (1.3-3.2); Glucose 102 mg/dl (74-100); Potassium 3.6 mmoL/L (3.5-5.1); Sodium 140 mmol/L (136-145); Total Protein,Serum 6.3 g/dl (6.3-8.2)
[2023-07-31] MEDS: PERTUZUMAB SQ (09:50)
[2023-07-31] MEDS: HYALURONIDASE SQ (09:50)
[2023-07-31] MEDS: TRASTUZUMAB SQ (09:50)
[2023-07-31 09:52] VITALS: BP 118/59; PULSE 72; RESP 18; TEMP 36.8; O2SAT 99
[2023-07-31 10:00] VITALS: BP 121/72; PULSE 81; RESP 18; TEMP 36.7; O2SAT 99
== END 2023-07-31 10:00 | disposition home or self-care (01) ==
PROVIDERS: PCP Nurse Practitioner; Visit Provider Internal Medicine Medical Oncology
DX: C50.811 Malignant neoplasm of overlapping sites of right female breast (principal); Z17.0 Estrogen receptor positive status [ER+]
CPT/HCPCS: 80053; 85025; 96401; 96402; J9316

== ENCOUNTER 2023-08-24 08:47 | Outpatient (CLI) | payer OTHER, SELFPAY ==
[2023-08-24 09:12] VITALS: BP 118/50; PULSE 96; RESP 18; TEMP 36.6; O2SAT 97
[2023-08-24] MEDS: TRASTUZUMAB SQ (09:12)
[2023-08-24] MEDS: PERTUZUMAB SQ (09:12)
[2023-08-24] MEDS: HYALURONIDASE SQ (09:12)
== END 2023-08-24 09:30 | disposition home or self-care (01) ==
LOC: INF 08:48
PROVIDERS: PCP Nurse Practitioner; Visit Provider Internal Medicine Medical Oncology
DX: C50.811 Malignant neoplasm of overlapping sites of right female breast (principal); Z17.0 Estrogen receptor positive status [ER+]
CPT/HCPCS: 96401; 96402; J9316

== ENCOUNTER 2023-09-04 15:05 | Outpatient (CLI) | payer OTHER, SELFPAY ==
--- NOTE | 2023-09-04 | CA_ITS ---
APPROVED REPORT EXAM: Comprehensive 2D, Doppler, and color-flow Echocardiogram German Professor: Olga Loomis CRT Ht: 5 ft 6 in Wt: 184lbs BSA: 1.93 BP: 117/79 mmHg Indications: EF for chemo, pt gets chemo injection every 3 week, ef check every 3 months, Breast CA, bilateral mastectomies and reconstruction 2D Dimensions Left Atrium 3.26 cm EF AP4 60.60 % LVOT 1.90 cm (M/F) 1.5-2.5 GL Strain -19.3 % M-Mode Dimensions RVDd 2.02 cm (0.9-2.6) LVDd 5.03 cm (3.5-5.7) Ao Diam 3.55 cm (2.0-3.7) LVDs 3.50 cm (3.5-5.7) IVSd 0.90 cm (0.6-1.1) PWd 0.72 cm (0.6-1.1) EF (Teich) 57.50% FS 30.40% EDV (Teich) 119.90 mL ESV (Teich) 50.90 mL Other Information Study Quality: Adequate Conclusion This is a limited TTE to evaluate for LVEF. Limited windows were obtained. The left ventricle is normal in size. There is normal LV systolic function. There is normal LV wall thickness. No regional wall motion abnormalities are noted. LVEF is 55-60%. The right ventricle is mildly dilated. There is normal RV systolic function. Compared to prior study from 05/15/2023, the biventricular size and function are unchanged. Electronically signed by : Jodi Leon MD 09/05/2023 16:52:54
== END 2023-09-04 23:59 ==
LOC: RT 15:05
PROVIDERS: PCP Nurse Practitioner; Visit Provider Internal Medicine Medical Oncology
DX: C50.811 Malignant neoplasm of overlapping sites of right female breast (principal); Z17.0 Estrogen receptor positive status [ER+]
CPT/HCPCS: 93308

== ENCOUNTER 2023-09-22 08:47 | Outpatient (CLI) | payer OTHER, SELFPAY ==
[2023-09-22 08:53] VITALS: BMI 29.7
[2023-09-22 09:13] LABS: Albumin Level 4.2 g/dl (3.5-5.0); Albumin/Globulin Ratio 1.6 (1.1-1.8); Alkaline Phosphatase 70 U/L (38-126); Anion Gap 9.1 mEq/L (5-15); Bilirubin,Total 0.8 mg/dl (0.2-1.3); Blood Urea Nitrogen 17 mg/dl (7-17); Calcium 9.8 mg/dl (8.4-10.2); Carbon Dioxide 29 mmol/L (22.0-30.0); Chloride 105 mmol/L (98-107); Creatinine Clearance Estimated 82 mL/min (50-200); Estimated Glomerular Filt Rate 53 ml/min (>60); GFR (African American) 64 ML/MIN (>60); Globulin 2.6 g/dL (1.3-3.2); Glucose 80 mg/dl (74-100); Potassium 3.1 mmoL/L (3.5-5.1); Sodium 140 mmol/L (136-145); Total Protein,Serum 6.8 g/dl (6.3-8.2)
[2023-09-22 09:14] LABS: Aspartate Amino Transferase 34 U/L (14-36); Basophils % 0.7 % (0.1-2.0); Eosinophils # 0.3 K/mm3 (0.0-0.4); Eosinophils % 4.1 % (0.1-12.0); Hematocrit 38.1 % (37.0-47.0); Hemoglobin 12.5 g/dL (12.2-16.2); Lymphocytes # 0.9 K/mm3 (0.7-4.5); Lymphocytes % 14.4 % (10-50); Mean Corpuscular HGB Conc 32.9 g/dL (31.8-35.4); Mean Corpuscular Hemoglobin 33.6 pg (27.0-31.2); Mean Corpuscular Volume 102.4 fl (81-99); Mean Platelet Volume 8.3 fl (7.4-10.4); Monocytes # 0.4 K/mm3 (0.1-1.0); Monocytes % 5.9 % (1.7-9.3); Neutrophils # 4.6 K/mm3 (1.8-7.8); Neutrophils % 74.9 % (37.0-80.0); Platelet Count 266 K/mm3 (142-424); Red Blood Count 3.72 M/mm3 (4.20-5.40); Red Cell Distribution Width 13.4 % (11.5-17.5); White Blood Count 6.2 K/mm3 (4.8-10.8)
[2023-09-22 09:44] LABS: Alanine Aminotransferase 29 U/L (12-78)
[2023-09-22] MEDS: HYALURONIDASE SQ (10:20)
[2023-09-22] MEDS: TRASTUZUMAB SQ (10:20)
[2023-09-22] MEDS: PERTUZUMAB SQ (10:20)
[2023-09-22 10:28] VITALS: BP 112/75; PULSE 76; RESP 18; O2SAT 100
[2023-09-22 10:35] VITALS: BP 115/79; PULSE 80; RESP 18; O2SAT 99
== END 2023-09-22 12:35 | disposition home or self-care (01) ==
LOC: INF 08:47
PROVIDERS: PCP Nurse Practitioner; Visit Provider Internal Medicine Medical Oncology
DX: C50.411 Malignant neoplasm of upper-outer quadrant of right female breast (principal); Z79.899 Other long term (current) drug therapy
CPT/HCPCS: 36415; 80053; 85025; 96401; 96402; J9316

== ENCOUNTER 2023-10-19 08:31 | Outpatient (CLI) | payer OTHER, SELFPAY ==
[2023-10-19] MEDS: PERTUZUMAB SQ (08:52)
[2023-10-19] MEDS: TRASTUZUMAB SQ (08:52)
[2023-10-19] MEDS: HYALURONIDASE SQ (08:52)
[2023-10-19 08:55] VITALS: BP 108/59; PULSE 71; RESP 18; TEMP 36.6; O2SAT 100
[2023-10-19 09:10] VITALS: BP 110/72; PULSE 76; O2SAT 100
== END 2023-10-19 09:10 | disposition home or self-care (01) ==
LOC: INF 08:31
PROVIDERS: PCP Nurse Practitioner; Visit Provider Internal Medicine Medical Oncology
DX: C50.811 Malignant neoplasm of overlapping sites of right female breast (principal); Z17.0 Estrogen receptor positive status [ER+]
CPT/HCPCS: 96401; 96402; J9316

== ENCOUNTER 2023-11-10 09:36 | Outpatient (CLI) | payer OTHER, SELFPAY ==
[2023-11-10 09:41] VITALS: BMI 28.2
--- NOTE | 2023-11-10 09:43 | PC.NURSE ---
0943-collected labs via venipuncture stick in left ac with butterfly needle;pt to oncology and to return for treatment.
[2023-11-10 09:52] LABS: Basophils % 0.6 % (0.1-2.0); Eosinophils # 0.1 K/mm3 (0.0-0.4); Eosinophils % 1.8 % (0.1-12.0); Hematocrit 38.1 % (37.0-47.0); Hemoglobin 12.2 g/dL (12.2-16.2); Lymphocytes # 0.8 K/mm3 (0.7-4.5); Lymphocytes % 12.3 % (10-50); Mean Corpuscular Volume 103.2 fl (81-99); Mean Platelet Volume 7.7 fl (7.4-10.4); Monocytes # 0.3 K/mm3 (0.1-1.0); Monocytes % 4.3 % (1.7-9.3); Neutrophils # 4.9 K/mm3 (1.8-7.8); Neutrophils % 81.1 % (37.0-80.0); Platelet Count 257 K/mm3 (142-424); Red Blood Count 3.69 M/mm3 (4.20-5.40); Red Cell Distribution Width 13.5 % (11.5-17.5); White Blood Count 6.1 K/mm3 (4.8-10.8)
[2023-11-10 09:59] LABS: Chloride 105 mmol/L (98-107); Potassium 3.5 mmoL/L (3.5-5.1); Sodium 139 mmol/L (136-145)
[2023-11-10 10:02] LABS: Alanine Aminotransferase 29 U/L (12-78); Albumin/Globulin Ratio 1.6 (1.1-1.8); Alkaline Phosphatase 58 U/L (38-126); Anion Gap 5.5 mEq/L (5-15); Aspartate Amino Transferase 35 U/L (14-36); Bilirubin,Total 0.6 mg/dl (0.2-1.3); Blood Urea Nitrogen 24 mg/dl (7-17); Calcium 9.5 mg/dl (8.4-10.2); Carbon Dioxide 32 mmol/L (22.0-30.0); Creatinine Clearance Estimated 107 mL/min (50-200); Estimated Glomerular Filt Rate 76 ml/min (>60); GFR (African American) 92 ML/MIN (>60); Globulin 2.5 g/dL (1.3-3.2); Glucose 76 mg/dl (74-100); Total Protein,Serum 6.5 g/dl (6.3-8.2)
[2023-11-10] MEDS: HYALURONIDASE SQ (10:37)
[2023-11-10] MEDS: PERTUZUMAB SQ (10:37)
[2023-11-10] MEDS: TRASTUZUMAB SQ (10:37)
[2023-11-10 10:48] VITALS: BP 124/83; PULSE 86; RESP 18; TEMP 36.7; O2SAT 100
== END 2023-11-10 10:48 | disposition home or self-care (01) ==
LOC: INF 09:38
PROVIDERS: PCP Nurse Practitioner; Visit Provider Internal Medicine Medical Oncology
DX: C50.811 Malignant neoplasm of overlapping sites of right female breast (principal); Z17.0 Estrogen receptor positive status [ER+]; Z79.899 Other long term (current) drug therapy
CPT/HCPCS: 36415; 80053; 85025; 96401; 96402; J9316

== ENCOUNTER 2023-12-01 09:02 | Outpatient (CLI) | payer OTHER, SELFPAY ==
[2023-12-01] MEDS: PERTUZUMAB SQ (09:23)
[2023-12-01] MEDS: HYALURONIDASE SQ (09:23)
[2023-12-01] MEDS: TRASTUZUMAB SQ (09:23)
[2023-12-01 09:30] VITALS: BP 135/74; PULSE 85; RESP 18; TEMP 36.8; O2SAT 99
[2023-12-01 09:35] VITALS: BP 131/69; PULSE 78
== END 2023-12-01 09:35 | disposition home or self-care (01) ==
LOC: INF 09:02
PROVIDERS: PCP Nurse Practitioner; Visit Provider Internal Medicine Medical Oncology
DX: C50.811 Malignant neoplasm of overlapping sites of right female breast (principal); Z17.0 Estrogen receptor positive status [ER+]
CPT/HCPCS: 96401; 96402; J9316

== ENCOUNTER 2023-12-14 07:47 | Outpatient (CLI) | payer OTHER, SELFPAY ==
--- NOTE | 2023-12-14 07:52 | CA_ITS ---
APPROVED REPORT EXAM: Comprehensive 2D, Doppler, and color-flow Echocardiogram Workday Director: Essie Ohara RDCS Ht: 5 ft 6 in Wt: 169lbs BSA: 1.86 BP: 130/85 mmHg Indications: BREAST CA CHEMO FOLLOW UP M-Mode Dimensions RVDd 1.47 cm (0.9-2.6) LA Diam 3.00 cm (1.9-4.0) LVDd 5.31 cm (3.5-5.7) LVDs 4.03 cm (3.5-5.7) IVSd 0.58 cm (0.6-1.1) PWd 0.57 cm (0.6-1.1) EF (Teich) 47.50% FS 24.10% EDV (Teich) 135.90 mL ESV (Teich) 71.30 mL LV Diastology E Decel Time 147 (160-240 msec) E/A Ratio 1.5 Mitral Valve MV E Max Ludwig. 76.0 (40-130 cm/s) MV A Velocity 51.0 (40-130 cm/s) E/A Ratio 1.49 MV PHT 43.0 ms Tricuspid Valve TR P. Velocity 230.00 cm/s RAP Estimate 10.00 mmHg RVSP 31.20 mmHg Left Ventricle The left ventricle is normal size. The left ventricular systolic function is normal. There is normal left ventricular wall thickness. There is normal LV segmental wall motion. The left ventricular diastolic function is normal. LVEF is 55%. Right Ventricle The right ventricle is mildly dilated. The right ventricular systolic function is normal. Atria The left atrium size is normal. The right atrium size is normal. There is no Doppler evidence of interatrial shunt. Aortic Valve The aortic valve opens well. There is no aortic valvular stenosis. Trace aortic regurgitation. Mitral Valve The mitral valve is normal in structure. No evidence of mitral valve stenosis. Trace mitral regurgitation. Tricuspid Valve The tricupsid valve leaflets are thin and pliable. Mild tricuspid regurgitation. RVSP is 20-25 mmHg. Pulmonic Valve The pulmonary valve is normal in structure. Trace pulmonic regurgitation. Great Vessels The aortic root is normal in size. The ascending aorta is normal in size. IVC is normal in size and collapses >50% with inspiration. Pericardium There is no pericardial effusion. Other Information Study Quality: Adequate Conclusion Normal LV systolic function (LVEF 55%). Mild RV dilation. Mild TR. Compared to prior study from 09/04/2023, there is overall no change in LVEF. Electronically signed by : Jodi Leon MD 12/15/2023 13:08:05
== END 2023-12-14 23:59 | disposition home or self-care (01) ==
LOC: RT 07:48
PROVIDERS: PCP Nurse Practitioner; Visit Provider Internal Medicine Medical Oncology
DX: C50.811 Malignant neoplasm of overlapping sites of right female breast (principal); Z17.0 Estrogen receptor positive status [ER+]
CPT/HCPCS: 93306

== ENCOUNTER 2023-12-25 08:33 | Outpatient (CLI) | payer OTHER, SELFPAY ==
[2023-12-25 08:36] VITALS: BMI 27.2
[2023-12-25 08:51] LABS: Basophils % 0.7 % (0.1-2.0); Eosinophils # 0.1 K/mm3 (0.0-0.4); Eosinophils % 2.6 % (0.1-12.0); Hematocrit 37.3 % (37.0-47.0); Hemoglobin 12.1 g/dL (12.2-16.2); Lymphocytes # 0.8 K/mm3 (0.7-4.5); Lymphocytes % 15.3 % (10-50); Mean Corpuscular HGB Conc 32.6 g/dL (31.8-35.4); Mean Corpuscular Hemoglobin 32.8 pg (27.0-31.2); Mean Corpuscular Volume 100.9 fl (81-99); Mean Platelet Volume 7.9 fl (7.4-10.4); Monocytes # 0.3 K/mm3 (0.1-1.0); Monocytes % 5.7 % (1.7-9.3); Neutrophils # 3.8 K/mm3 (1.8-7.8); Neutrophils % 75.7 % (37.0-80.0); Platelet Count 252 K/mm3 (142-424); Red Cell Distribution Width 13.8 % (11.5-17.5)
[2023-12-25 09:06] LABS: Chloride 105 mmol/L (98-107); Potassium 3.3 mmoL/L (3.5-5.1); Sodium 140 mmol/L (136-145)
[2023-12-25 09:09] LABS: Alanine Aminotransferase 31 U/L (12-78); Albumin Level 4.1 g/dl (3.5-5.0); Albumin/Globulin Ratio 1.5 (1.1-1.8); Alkaline Phosphatase 72 U/L (38-126); Anion Gap 7.3 mEq/L (5-15); Aspartate Amino Transferase 35 U/L (14-36); Bilirubin,Total 0.4 mg/dl (0.2-1.3); Blood Urea Nitrogen 23 mg/dl (7-17); Calcium 9.5 mg/dl (8.4-10.2); Carbon Dioxide 31 mmol/L (22.0-30.0); Creatinine Clearance Estimated 82 mL/min (50-200); Estimated Glomerular Filt Rate 59 ml/min (>60); GFR (African American) 71 ML/MIN (>60); Globulin 2.8 g/dL (1.3-3.2); Glucose 71 mg/dl (74-100); Total Protein,Serum 6.9 g/dl (6.3-8.2)
[2023-12-25] MEDS: PERTUZUMAB SQ (09:46)
[2023-12-25] MEDS: TRASTUZUMAB SQ (09:46)
[2023-12-25] MEDS: HYALURONIDASE SQ (09:46)
[2023-12-25 09:53] VITALS: BP 119/78; PULSE 72; RESP 18; TEMP 36.6; O2SAT 99
== END 2023-12-25 10:01 | disposition home or self-care (01) ==
LOC: INF 08:34
PROVIDERS: PCP Nurse Practitioner; Visit Provider Internal Medicine Medical Oncology
DX: Z51.11 Encounter for antineoplastic chemotherapy (principal); C50.411 Malignant neoplasm of upper-outer quadrant of right female breast; C77.3 Secondary and unspecified malignant neoplasm of axilla and upper limb lymph nodes; Z17.0 Estrogen receptor positive status [ER+]; Z90.13 Acquired absence of bilateral breasts and nipples; Z79.899 Other long term (current) drug therapy
CPT/HCPCS: 80053; 85025; 96401; 96402; J9316

== ENCOUNTER 2024-01-15 09:12 | Outpatient (CLI) | payer OTHER, SELFPAY ==
[2024-01-15] MEDS: PERTUZUMAB SQ (09:31)
[2024-01-15] MEDS: TRASTUZUMAB SQ (09:31)
[2024-01-15] MEDS: HYALURONIDASE SQ (09:31)
[2024-01-15 09:45] VITALS: BP 124/76; PULSE 60; RESP 18; TEMP 36.6; O2SAT 99
== END 2024-01-15 09:45 | disposition home or self-care (01) ==
LOC: INF 09:12
PROVIDERS: PCP Nurse Practitioner; Visit Provider Internal Medicine Medical Oncology
DX: Z51.11 Encounter for antineoplastic chemotherapy (principal); C50.411 Malignant neoplasm of upper-outer quadrant of right female breast; C77.3 Secondary and unspecified malignant neoplasm of axilla and upper limb lymph nodes; Z17.0 Estrogen receptor positive status [ER+]; Z90.13 Acquired absence of bilateral breasts and nipples; Z79.899 Other long term (current) drug therapy
CPT/HCPCS: 96401; 96402; J9316

== ENCOUNTER 2024-02-04 11:02 | Outpatient (CLI) | payer OTHER, SELFPAY ==
[2024-02-04 11:09] VITALS: BMI 26.3
--- NOTE | 2024-02-04 11:20 | PC.NURSE ---
1115 CBC/CMP collected via venipuncture to L AC with butterfly needle x1 stick per LUÍS Saab. Patient tolerated well. Patient has appointment with Dr. Villalta.
[2024-02-04 11:25] LABS: Basophils # 0.1 K/mm3 (0-0.2); Basophils % 0.9 % (0.1-2.0); Eosinophils # 0.1 K/mm3 (0.0-0.4); Eosinophils % 1.9 % (0.1-12.0); Hematocrit 40.9 % (37.0-47.0); Hemoglobin 12.9 g/dL (12.2-16.2); Lymphocytes # 1.3 K/mm3 (0.7-4.5); Mean Corpuscular HGB Conc 31.6 g/dL (31.8-35.4); Mean Corpuscular Hemoglobin 32.7 pg (27.0-31.2); Mean Corpuscular Volume 103.3 fl (81-99); Monocytes # 0.4 K/mm3 (0.1-1.0); Neutrophils # 4.8 K/mm3 (1.8-7.8); Neutrophils % 71.2 % (37.0-80.0); Platelet Count 257 K/mm3 (142-424); Red Blood Count 3.96 M/mm3 (4.20-5.40); Red Cell Distribution Width 13.2 % (11.5-17.5); White Blood Count 6.7 K/mm3 (4.8-10.8)
[2024-02-04 11:55] LABS: Alanine Aminotransferase 25 U/L (12-78); Albumin Level 4.3 g/dl (3.5-5.0); Albumin/Globulin Ratio 1.4 (1.1-1.8); Alkaline Phosphatase 59 U/L (38-126); Anion Gap 9.8 mEq/L (5-15); Aspartate Amino Transferase 33 U/L (14-36); Blood Urea Nitrogen 28 mg/dl (7-17); Calcium 9.7 mg/dl (8.4-10.2); Carbon Dioxide 30 mmol/L (22.0-30.0); Chloride 103 mmol/L (98-107); Creatinine Clearance Estimated 88 mL/min (50-200); Estimated Glomerular Filt Rate 67 ml/min (>60); GFR (African American) 81 ML/MIN (>60); Glucose 91 mg/dl (74-100); Potassium 3.8 mmoL/L (3.5-5.1); Sodium 139 mmol/L (136-145); Total Protein,Serum 7.3 g/dl (6.3-8.2)
[2024-02-04 12:20] VITALS: BP 114/73; PULSE 84; RESP 17; TEMP 36.9; O2SAT 100
== END 2024-02-04 12:35 | disposition home or self-care (01) ==
LOC: INF 11:02
PROVIDERS: PCP Nurse Practitioner; Visit Provider Internal Medicine Medical Oncology
DX: Z51.11 Encounter for antineoplastic chemotherapy (principal); C50.411 Malignant neoplasm of upper-outer quadrant of right female breast; Z17.0 Estrogen receptor positive status [ER+]; Z79.899 Other long term (current) drug therapy
CPT/HCPCS: 80053; 85025; 96401; J9316

== ENCOUNTER 2024-02-24 12:05 | Outpatient (CLI) | payer OTHER, SELFPAY ==
[2024-02-24 12:40] VITALS: BP 120/77; PULSE 86; RESP 17; O2SAT 99
== END 2024-02-24 12:55 | disposition home or self-care (01) ==
LOC: INF 12:05
PROVIDERS: PCP Nurse Practitioner; Visit Provider Internal Medicine Medical Oncology
DX: Z51.11 Encounter for antineoplastic chemotherapy (principal); C50.411 Malignant neoplasm of upper-outer quadrant of right female breast; Z17.0 Estrogen receptor positive status [ER+]; Z79.899 Other long term (current) drug therapy
CPT/HCPCS: 96402; J9316

== ENCOUNTER 2024-03-30 07:52 | Outpatient (CLI) | payer OTHER, SELFPAY ==
--- NOTE | 2024-03-30 | CA_ITS ---
APPROVED REPORT EXAM: Limited 2D Echocardiogram Music Industry Intern: Olga Loomis CRT Ht: 5 ft 6 in Wt: 154lbs BSA: 1.79 BP: 113/74 mmHg Indications: EF CHECK PT BEEN ON PHESGO X 1 YEAR, Breast ca, Reconstruction 12/26, M-Mode Dimensions RVDd 2.38 cm (0.9-2.6) LA Diam 2.66 cm (1.9-4.0) LVDd 4.85 cm (3.5-5.7) LVDs 3.48 cm (3.5-5.7) IVSd 0.91 cm (0.6-1.1) PWd 0.86 cm (0.6-1.1) EF (Teich) 54.40% FS 28.20% EDV (Teich) 110.20 mL ESV (Teich) 50.20 mL Other Information Study Quality: Fair Conclusion This is a limited TTE to evaluate for LVEF in the setting of chemotherapy administration. Limited windows were obtained. The left ventricle is normal in size. There is increased LV wall thickness. There is low normal global LV systolic function. No regional wall motion abnormalities are noted. LVEF is 50%. Electronically signed by : Jodi Leon MD 03/30/2024 11:47:31
== END 2024-03-30 23:59 | disposition home or self-care (01) ==
LOC: RT 07:53
PROVIDERS: PCP Nurse Practitioner; Visit Provider Internal Medicine Medical Oncology
DX: C50.811 Malignant neoplasm of overlapping sites of right female breast (principal); Z17.0 Estrogen receptor positive status [ER+]
CPT/HCPCS: 93308

== ENCOUNTER 2024-11-15 08:57 | Outpatient (CLI) | payer OTHER, SELFPAY ==
[2024-11-15 10:34] LABS: Basophils # 0.1 K/mm3 (0-0.2); Basophils % 0.7 % (0.1-2.0); Eosinophils # 0.2 Kmm3 (0.0-0.4); Eosinophils % 2.5 % (0.1-12.0); Hematocrit 38.3 % (37.0-47.0); Hemoglobin 12.6 g/dL (12.2-16.2); Immature Granulocytes # 0.02 10^3uL; Immature Granulocytes % 0.2 %; Lymphocytes # 0.9 K/mm3 (0.7-4.5); Lymphocytes % 10.8 % (10-50); Mean Corpuscular HGB Conc 32.9 g/dL (31.8-35.4); Mean Corpuscular Hemoglobin 32.6 pg (27.0-31.2); Mean Corpuscular Volume 99.2 fl (81-99); Mean Platelet Volume 10.2 fl (7.4-10.4); Monocytes # 0.6 K/mm3 (0.1-1.0); Monocytes % 6.7 % (1.7-9.3); Neutrophils # 6.6 K/mm3 (1.8-7.8); Neutrophils % 79.1 % (37.0-80.0); Nucleated Red Blood Cells # 0 10^3/uL; Nucleated Red Blood Cells % 0 %; Platelet Count 262 K/mm3 (142-424); Red Blood Count 3.86 M/mm3 (4.20-5.40); Red Cell Distribution Width 12.6 % (11.5-17.5); Red Cell Distribution Width-SD 45.6 fL; White Blood Count 8.4 K/mm3 (4.8-10.8)
[2024-11-15 10:39] LABS: Chloride 106 mmol/L (98-107)
[2024-11-15 10:40] LABS: Albumin Level 4.5 g/dl (3.5-5.0); Potassium 3.7 mmoL/L (3.5-5.1); Sodium 140 mmol/L (136-145)
[2024-11-15 10:42] LABS: Blood Urea Nitrogen 26 mg/dl (7-17); Estimated Glomerular Filt Rate 66 ml/min (>60); GFR (African American) 80 ML/MIN (>60)
[2024-11-15 10:43] LABS: Alanine Aminotransferase 21 U/L (12-78); Albumin/Globulin Ratio 1.9 (1.1-1.8); Alkaline Phosphatase 49 U/L (38-126); Anion Gap 6.7 mEq/L (5-15); Aspartate Amino Transferase 34 U/L (14-36); Bilirubin,Total 0.6 mg/dl (0.2-1.3); Calcium 9.6 mg/dl (8.4-10.2); Carbon Dioxide 31 mmol/L (22.0-30.0); Globulin 2.4 g/dL (1.3-3.2); Glucose 84 mg/dl (74-100); Total Protein,Serum 6.9 g/dl (6.3-8.2)
== END 2024-11-15 09:20 | disposition home or self-care (01) ==
LOC: INF 08:58
PROVIDERS: PCP Nurse Practitioner; Visit Provider Internal Medicine Medical Oncology
DX: C50.919 Malignant neoplasm of unspecified site of unspecified female breast (principal)
CPT/HCPCS: 36415; 80053; 85025